=== PATIENT | female | born 1940 | race Caucasian/White ===

== ENCOUNTER 2016-11-14 15:25 | Emergency (ER) | payer OTHER ==
[2016-11-14 15:51] VITALS: BP 125/69; PULSE 63; TEMP 98.3; BMI 32.1
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
[2016-11-14 17:05] LABS: MCH 30.5 pg (25.7-33.7); MCHC 33.9 g/dl (32.0-36.0); MEAN CELL VOLUME 90.1 fl (80-96); MEAN PLT VOLUME 8.9 fl (7.5-11.1); PLATELET COUNT 251 K/MM3 (134-434); RDW 13.2 % (11.6-15.6); WHITE BLOOD COUNT 7.7 K/mm3 (4.0-10.8)
[2016-11-14 17:08] LABS: INR 0.96 (0.82-1.09); PROTHROMBIN TIME (PATIENT) 10.8 SEC (10.2-13.0)
[2016-11-14 17:10] LABS: ALBUMIN 3.9 g/dl (3.5-5.0); ALK PHOS 79 U/L (32-92); ANION GAP 3 (8-16); BILIRUBIN,TOTAL 0.7 mg/dl (0.2-1.0); CALCIUM 9.4 mg/dl (8.4-10.2); CO2 29 mmol/L (22-28); CREATININE 1.2 mg/dl (0.6-1.3); GLUCOSE,RANDOM 117 mg/dl (74-106); SGOT/AST 24 U/L (10-42); SGPT/ALT 17 U/L (10-40); TOT PROT 7.4 g/dl (6.4-8.3)
[2016-11-14 17:44] LABS: PH,URINE 5.5 (4.5-8); URINE APPEARANCE Clear; URINE BILIRUBIN 1+ (NEGATIVE); URINE BLOOD Negative (NEGATIVE); URINE GLUCOSE (UA) Negative (NEGATIVE); URINE KETONE 1+ (NEGATIVE); URINE LEUK ESTERASE Negative (NEGATIVE); URINE NITRITE Negative (NEGATIVE); URINE PROTEIN Negative (NEGATIVE); URINE UROBILINOGEN 0.2 E.U/dl (0.2-1.0)
[2016-11-14 17:45] LABS: URINE COLOR YELLOW
[2016-11-14 18:01] LABS: TROPONIN I (DFP) 0.04 ng/ml (0.03-0.50)
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
--- NOTE | 2016-11-15 17:11 | EKG ---
Test Reason : Blood Pressure : / mmHG Vent. Rate : 054 BPM Atrial Rate : 054 BPM P-R Int : 162 ms QRS Dur : 082 ms QT Int : 442 ms P-R-T Axes : 027 -22 007 degrees QTc Int : 419 ms SINUS BRADYCARDIA RSR' IN V1 VOLTAGE CRITERIA FOR LEFT VENTRICULAR HYPERTROPHY ABNORMAL ECG WHEN COMPARED WITH ECG OF 19-NOV-2015 22:40, NO MAJOR CHANGES SEEN Confirmed by DOMINGO ROBLES MD ([id number]) on 11/15/2016 5:10:54 PM Referred By: LISANDRA Confirmed By:DOMINGO ROBLES MD
== END 2016-11-14 18:43 | disposition home or self-care (01) ==
LOC: FER 15:25
DX: R42 Dizziness and giddiness (principal); I10 Essential (primary) hypertension; E78.00 Pure hypercholesterolemia, unspecified; K21.9 Gastro-esophageal reflux disease without esophagitis; I51.9 Heart disease, unspecified
CPT/HCPCS: 36415; 70450-TC; 72125-TC; 80053; 81003; 82550; 84484; 85027; 85610; 93005; 99284-25